=== PATIENT | female | born 1975 | race Caucasian/White ===

== ENCOUNTER 2023-09-11 19:01 | Emergency (ER) | payer OTHER ==
[~2023-09-11] VITALS: Ht 170.2 cm; Wt 75.0 kg
[2023-09-11 19:03] VITALS: TEMP 98.1; O2SAT 99
[2023-09-11 20:13] VITALS: BP 127/77; PULSE 64; RESP 16
[2023-09-11] MEDS: METHOCARBAMOL 500MG TABLET PO ONE (20:13)
[2023-09-11] MEDS: IBUPROFEN 600MG TABLET PO ONE (20:13)
[2023-09-11] MEDS ORDERED: METH-653 MT (20:21)
[2023-09-11] MEDS ORDERED: IBUP-2029 MT (20:21)
== END 2023-09-11 21:56 | disposition home or self-care (01) ==
LOC: ER 19:01
DX: S20.219A Contusion of unspecified front wall of thorax, initial encounter (principal); V89.2XXA Person injured in unspecified motor-vehicle accident, traffic, initial encounter; Y93.9 Activity, unspecified; Y92.89 Other specified places as the place of occurrence of the external cause; Y99.8 Other external cause status
CPT/HCPCS: 71045; 81025; 99283